=== PATIENT | female | born 1990 | race Caucasian/White ===

== ENCOUNTER 2018-02-16 07:16 | Emergency (ER) | payer OTHER, SELFPAY ==
[2018-02-16] MEDS ORDERED: Ondansetron ODT 8 MG TAB ONE (07:28)
[2018-02-16] MEDS ORDERED: Ketorolac Tromethamine 30 MG/ML VIAL ONE (07:53)
[2018-02-16] MEDS ORDERED: Acetaminophen 500 MG TAB ONE (07:53)
[2018-02-16 08:07] LABS: Hemoglobin 14.8 g/dL (12.0-16.0); Mean Corpuscular HGB CONC 33.1 g/dL (32.0-36.0); Mean Corpuscular Hemoglobin 29.1 pg (27.0-31.0); Mean Corpuscular Volume 87.9 fL (78.0-98.0); Mean Platelet Volume 8.1 fL (7.4-10.4); Platelet Count 212 thou/uL (130-400); RBC Distribution Width 11.4 % (11.5-14.5); Red Blood Cell (RBC) Count 5.07 mill/uL (4.20-5.40); White Blood Cell (WBC) Count 16.6 thou/uL (4.8-10.8)
[2018-02-16 08:13] LABS: BHCG - Serum Negative (NEGATIVE); Pregs Control Background? CLEAR/WHITE (CLR/WHITE); Pregs Control Bar Appear? YES (CONTROL BAR)
[2018-02-16 08:19] LABS: Bilirubin Negative (Negative); Blood, Urine Negative (Negative); Clarity CLEAR (Clear); Glucose, Urine (Dipstick) Negative (Negative); Leukocyte Small (Negative); Nitrite Negative (Negative); Protein, Urine (Dipstick) Negative (Neg-Trace); Specific Gravity, Urine 1.022 (1.002-1.036); Urobilinogen 0.2 mg/dL (0.2-1.0); pH, Urine 7.5 (5.0-9.0)
[2018-02-16 08:22] LABS: Band 2 % (5-11); Lymphocytes 8 % (21-51); MDiff Complete? YES; Monocytes 7 % (0-10); Neutrophil 83 % (42-75); RBC Morphology Normal
[2018-02-16 08:22] LABS: Bacteria/HPF Rare-Few HPF (None Seen); Hyaline Casts/LPF 0-3 HYALINE CAST LPF (0-3 Hyaline); Pathc Cast-AUWi Flag 0.14 (0-2.49); RBC/HPF 0-3 HPF (0-3)
[2018-02-16 08:49] LABS: ALT (SGPT) 10 U/L (8-55); AST (SGOT) 26 U/L (5-34); Albumin 4.5 g/dL (3.5-5.0); Alkaline Phosphatase 103 U/L (40-150); Anion Gap 15 mmol/L (10-20); BUN (Urea Nitrogen) 11 mg/dL (7.0-18.7); Bilirubin, Total 0.6 mg/dL (0.2-1.2); Calc. Creatinine Clearance 0 mL/min (70-130); Calcium 9.6 mg/dL (7.8-10.44); Carbon Dioxide 23 mmol/L (22-29); Chloride 100 mmol/L (98-107); Estimated GFR-MDRD 88; Glucose 112 mg/dL (70-105); Lipase 12 U/L (8-78); Potassium 4.5 mmol/L (3.5-5.1); Protein, Total 8.5 g/dL (6.0-8.3); Sodium 133 mmol/L (136-145)
--- NOTE | 2018-02-16 09:36 | CT ---
CT ABDOMEN AND PELVIS PERFORMED WITHOUT CONTRAST ENHANCEMENT: HISTORY: Abdominal pain and vomiting. COMPARISON: 04/17/2015 FINDINGS: ABDOMEN: The lung bases are clear. The liver, spleen, pancreas, and gallbladder regions appear unremarkable. The gallbladder is mildly distended. The right and left adrenal glands are normal in appearance. A punctate, nonobstructing lower pole le ft renal calculus is seen. No obstruction of either kidney, and no ureteral calculi. No significant periaortic or mesenteric adenopathy. No bowel abnormalities. PELVIS: There is a fat-containing periumbilical hernia. The appendix region is unremarkable. No in flammatory change in this area. No pelvic lymphadenopathy, mass, or free fluid. IMPRESSION: Punctate, nonobstructing lower pole left renal calculus. No acute abnormalities of the abdomen or pe lvis. POS: [facility]
[2018-02-16] MEDS ORDERED: Azithromycin 250 MG TAB ONE (10:31)
[2018-02-16] MEDS ORDERED: cefTRIAXone\\ROCEPHIN 1 GM VIAL ONE (10:31)
[2018-02-16] MEDS ORDERED: Sodium Chloride 0.9% 100 ML ONE (10:31)
[2018-02-16] MEDS ORDERED: metroNIDAZOLE 500 MG TAB PO SCH (10:45)
[2018-02-16] MEDS ORDERED: metroNIDAZOLE 250 MG TAB ONE (11:04)
--- NOTE | 2018-02-16 11:13 | ULT ---
RIGHT UPPER QUADRANT GALLBLADDER ULTRASOUND: HISTORY: Abdominal pain. COMPARISON: CT from the same day. TECHNIQUE: Real-time awan-scale and color evaluation of the right upper quadrant of the abdomen was performed. FINDINGS: The visualized portion of the pancreas is unremarkable. Hepatic echotexture is normal. The gallbladder is normal. The portal vein has patent antegrade flow. The common bile duct is shahnaz l. No cholelithiasis. The right kidney measures 10.7 x 4.8 x 5 cm without mass, hydronephrosis, or abnormal calcifications. A sonographic Marquis sign is negative. IMPRESSION: Normal examination. POS: [facility]
[2018-02-17 23:17] LABS: Chlamydia by PCR Not Detected (NotDetected); GC by PCR Not Detected (NotDetected)
== END 2018-02-16 12:00 | disposition home or self-care (01) ==
LOC: ERS 07:16
DX: R10.30 Lower abdominal pain, unspecified (principal)
CPT/HCPCS: 36415; 74176; 76705; 80053; 81003; 81015; 83605; 83690; 84703; 85025; 87040; 87086; 87480; 87491; 87510; 87591; 87660; 96361; 96365; 96375; J0696; J1885; J7050

== ENCOUNTER 2018-02-19 11:27 | Emergency (ER) | payer SELFPAY ==
[2018-02-19 12:14] LABS: Bilirubin Negative (Negative); Blood, Urine Negative (Negative); Clarity CLOUDY (Clear); Glucose, Urine (Dipstick) Negative (Negative); Leukocyte Negative (Negative); Nitrite Negative (Negative); Protein, Urine (Dipstick) Trace mg/dL (Neg-Trace); Specific Gravity, Urine 1.028 (1.002-1.036); Urobilinogen 0.2 mg/dL (0.2-1.0)
== END 2018-02-19 13:45 | disposition home or self-care (01) ==
LOC: ERS 11:27
DX: R30.0 Dysuria (principal); B96.89 Other specified bacterial agents as the cause of diseases classified elsewhere
CPT/HCPCS: 36416; 51701; 81003; 87086; A4353

== ENCOUNTER 2018-11-25 17:44 | Emergency (ER) | payer SELFPAY ==
[2018-11-25] MEDS ORDERED: Ketorolac Tromethamine 30 MG/ML VIAL ONE (18:42)
[2018-11-25 18:56] LABS: #Basophils 0.1 thou/uL (0.0-0.2); #Eosinphils 0.2 thou/uL (0.0-0.7); #Lymphocytes 2.6 thou/uL (1.20-3.40); #Monocytes 0.6 thou/uL (0.11-0.59); #Neutrophils 6.6 thou/uL (1.40-6.50); %Basophils 0.9 % (0.0-1.0); %Eosinophils 1.7 % (0.0-10.0); %Lymphocytes 25.6 % (21.0-51.0); %Monocytes 5.8 % (0.0-10.0); %Neutrophils 65.9 % (42.0-75.0); Hemoglobin 14.4 g/dL (12.0-16.0); Mean Corpuscular HGB CONC 34.2 g/dL (32.0-36.0); Mean Corpuscular Hemoglobin 29.4 pg (27.0-31.0); Mean Corpuscular Volume 86.1 fL (78.0-98.0); Mean Platelet Volume 8.4 fL (7.4-10.4); Platelet Count 268 thou/uL (130-400); RBC Distribution Width 12.1 % (11.5-14.5); Red Blood Cell (RBC) Count 4.91 mill/uL (4.20-5.40)
[2018-11-25 19:00] LABS: BHCG - Serum Negative (NEGATIVE); Pregs Control Background? CLEAR/WHITE (CLR/WHITE); Pregs Control Bar Appear? YES (CONTROL BAR)
[2018-11-25 19:08] LABS: Anion Gap 15 mmol/L (10-20); BUN (Urea Nitrogen) 12 mg/dL (7.0-18.7); Calc. Creatinine Clearance 0 mL/min (70-130); Calcium 9.6 mg/dL (7.8-10.44); Carbon Dioxide 23 mmol/L (22-29); Chloride 105 mmol/L (98-107); Estimated GFR-MDRD Greater than 90; Glucose 84 mg/dL (70-105); Sodium 139 mmol/L (136-145)
--- NOTE | 2018-11-25 19:28 | CT ---
EXAM: Abdomen and pelvic CT scan without contrast: HISTORY: Abdominal pain and vomiting COMPARISON: 02/16/2018 FINDINGS: The visualized lung bases are clear. Liver: Unremarkable. Gallbladder:Unremarkable. Pancreas:Unremarkable Spleen:Unremarkable. Adrenal glands:Unremarkable. Kidneys:Several tiny nonobstructing left renal calculi.No solid or cystic mass. No evidence for bowel obstruction. No CT evidence for acute appendicitis. The urinary bladder is unremarkable. No abscess, adenopathy, or abnormal fluid collection within the abdomen or pelvis. IMPRESSION: Several nonobstructing left renal calculi. No evidence for acute obstruction. Overall stable app [place].
[2018-11-25 19:51] LABS: Bilirubin Negative (Negative); Blood, Urine Large (Negative); Clarity Hazy (Clear); Glucose, Urine (Dipstick) Negative (Negative); Leukocyte Small (Negative); Nitrite Negative (Negative); Protein, Urine (Dipstick) 100 mg/dL (Neg-Trace); Urobilinogen 0.2 mg/dL (0.2-1.0)
[2018-11-25 19:53] LABS: Bacteria/HPF 2+ HPF (None Seen); RBC/HPF 21-50 HPF (0-3)
== END 2018-11-25 20:09 | disposition home or self-care (01) ==
LOC: SCSER 17:44
DX: N30.00 Acute cystitis without hematuria (principal)
CPT/HCPCS: 36415; 74176; 80048; 81003; 81015; 84703; 85025; 96372; J1885

== ENCOUNTER 2019-06-08 00:06 | Emergency (ER) | payer SELFPAY ==
[2019-06-08] MEDS ORDERED: Ondansetron PF 4 MG/2 ML Vial ONE (00:46)
[2019-06-08] MEDS ORDERED: Morphine 4 MG/ML VIAL ONE (00:46)
[2019-06-08 00:50] LABS: #Eosinphils 0.2 thou/uL (0.0-0.7); #Lymphocytes 2.9 thou/uL (1.20-3.40); #Monocytes 0.6 thou/uL (0.11-0.59); #Neutrophils 8.9 thou/uL (1.40-6.50); %Basophils 0.3 % (0.0-1.0); %Eosinophils 1.5 % (0.0-10.0); %Lymphocytes 22.9 % (21.0-51.0); %Monocytes 4.5 % (0.0-10.0); %Neutrophils 70.7 % (42.0-75.0); Hemoglobin 14.1 g/dL (12.0-16.0); Mean Corpuscular HGB CONC 34.9 g/dL (32.0-36.0); Mean Corpuscular Hemoglobin 30.6 pg (27.0-31.0); Mean Corpuscular Volume 87.7 fL (78.0-98.0); Platelet Count 232 thou/uL (130-400); RBC Distribution Width 11.7 % (11.5-14.5); White Blood Cell (WBC) Count 12.5 thou/uL (4.8-10.8)
[2019-06-08 01:08] LABS: BHCG - Serum Negative (NEGATIVE); Pregs Control Background? CLEAR/WHITE (CLR/WHITE); Pregs Control Bar Appear? YES (CONTROL BAR)
[2019-06-08 01:13] LABS: ALT (SGPT) 7 U/L (8-55); AST (SGOT) 9 U/L (5-34); Albumin 4.2 g/dL (3.5-5.0); Alkaline Phosphatase 76 U/L (40-110); Anion Gap 12 mmol/L (10-20); BUN (Urea Nitrogen) 11 mg/dL (7.0-18.7); Bilirubin, Total 0.2 mg/dL (0.2-1.2); Calc. Creatinine Clearance 0 mL/min (70-130); Calcium 9.3 mg/dL (7.8-10.44); Carbon Dioxide 24 mmol/L (22-29); Chloride 108 mmol/L (98-107); Estimated GFR-MDRD 82; Globulin 3.3 g/dL (2.4-3.5); Glucose 113 mg/dL (70-105); Lipase 25 U/L (8-78); Potassium 3.7 mmol/L (3.5-5.1); Protein, Total 7.5 g/dL (6.0-8.3); Sodium 140 mmol/L (136-145)
[2019-06-08 01:38] LABS: Bacteria/HPF None Seen HPF (None Seen); Bilirubin Negative (Negative); Blood, Urine 2+ (Negative); Clarity Clear (Clear); Glucose, Urine (Dipstick) Normal (Negative); Leukocyte Negative Leu/uL (Negative); Nitrite Negative (Negative); Protein, Urine (Dipstick) Negative (Neg-Trace); RBC/HPF 21-50 HPF (0-3); Urobilinogen Normal mg/dL (Less than 2); WBC/HPF 0-3 HPF (0-3)
--- NOTE | 2019-06-08 08:32 | CT ---
PRELIMINARY REPORT/[facility]/EMERGENCY AFTER HOURS PROCEDURE: CT ABDOMEN PELVIS W CON History: Pt is a 29 YO female presenting with 5 days frequency, dysuria, abdominal pain and vaginal b leeding. Comparison: None Findings: No acute process in the lung bases. Cardiac size within normal limits. There is minimal fluid in the distal esophagus. Correlate for reflux. Abdominal aorta is normal in caliber. Liver, gallbladder, spleen, pancreas and adrenal glands are unremarkable. Kidneys enhance symmetrically. No hydronephrosis. Urinary bladder is unremarkable. Pelvic organs are unremarkable as visualized. No free air or free fluid. Appendix is normal in caliber and is not inflammatory. No small bowel obstruction. Mild underdistention of the colon somewhat limits evaluation. There is mild wall prominence of the ascending colon with mild hazy appearance of the surrounding fat . No evidence of acute diverticulitis. Small fat-containing umbilical hernia. No acute osseous abnormality. Impression: 1. No CT evidence of acute appendicitis, bowel obstruction or acute diverticulitis. There is sugges tion of mild wall prominence of the ascending colon which may be reflective of underdistention. Comp onent of acute colitis is difficult to exclude in the appropriate clinical setting. 2. Minimal fluid within the distal esophagus. Correlate for reflux. 3. Additional findings, as above. Followup per final report recommendations. ELECTRONICALLY SIGNED BY: Greg Mosie DO Jun 08, 2019 1:56:15 AM [employer] This report is intended for review by the ordering physician only, in accordance of law. If you recei ve this report in error, please call [facility] at [phone]. FINAL REPORT CT ABDOMEN AND PELVIS WITH CONTRAST: HISTORY: Diffuse abdominal pain. COMPARISON: None. FINDINGS/IMPRESSION: The findings and impression are concordant with the preliminary report. POS: [facility]
[2019-06-08] MEDS ORDERED: Iopamidol-370 76% 500 ML 1 ML ONE (13:29)
== END 2019-06-08 02:17 | disposition home or self-care (01) ==
LOC: ERS 00:06
DX: N93.8 Other specified abnormal uterine and vaginal bleeding (principal)
CPT/HCPCS: 74177; 80053; 81003; 81015; 83690; 84703; 85025; 87086; 96361; 96374; 96375; J2270; J2405; Q9967

== ENCOUNTER 2023-05-20 12:55 | Emergency (ER) | payer OTHER, SELFPAY ==
[2023-05-20 13:18] LABS: #Basophils 0.1 thou/uL (0.0-0.2); #Eosinphils 0.1 thou/uL (0.0-0.7); #Monocytes 0.6 thou/uL (0.11-0.59); #Neutrophils 9.2 thou/uL (1.40-6.50); %Basophils 0.5 % (0.0-1.0); %Eosinophils 1.1 % (0.0-10.0); %Lymphocytes 15.6 % (21.0-51.0); %Monocytes 5.1 % (0.0-10.0); %Neutrophils 77.4 % (42.0-75.0); Hematocrit 41.2 % (36.0-47.0); Hemoglobin 13.8 g/dL (12.0-16.0); Mean Corpuscular HGB CONC 33.5 g/dL (32.0-36.0); Mean Corpuscular Hemoglobin 29.2 pg (27.0-31.0); Mean Corpuscular Volume 87.3 fl (78.0-98.0); Mean Platelet Volume 10.4 fL (7.4-10.4); Platelet Count 240 10x3/uL (130-400); RBC Distribution Width 12.9 % (11.5-14.5); Red Blood Cell (RBC) Count 4.72 mill/uL (4.20-5.40)
[2023-05-20 13:41] LABS: ALT (SGPT) 8 U/L (8-55); AST (SGOT) 8 U/L (5-34); Albumin 4.3 g/dL (3.5-5.0); Alkaline Phosphatase 85 U/L (40-110); Anion Gap 14 mmol/L (10-20); BUN (Urea Nitrogen) 12 mg/dL (7.0-18.7); Bilirubin, Total 0.3 mg/dL (0.2-1.2); Calc. Creatinine Clearance 0 mL/min (70-130); Calcium 9.1 mg/dL (7.8-10.44); Carbon Dioxide 22 mmol/L (22-29); Chloride 105 mmol/L (98-107); Estimated GFR 112; Globulin 3.3 g/dL (2.4-3.5); Glucose 102 mg/dL (70-105); Potassium 3.4 mmol/L (3.5-5.1); Protein, Total 7.6 g/dL (6.0-8.3); Sodium 138 mmol/L (136-145)
[2023-05-20] MEDS ORDERED: Ondansetron PF 4 MG/2 ML Vial ONE (14:13)
[2023-05-20] MEDS ORDERED: Ketorolac Tromethamine 30 MG/ML VIAL ONE (14:13)
[2023-05-20 14:18] LABS: Troponin I Less than 0.010 ng/mL (< 0.028)
[2023-05-20 14:37] LABS: Bacteria/HPF 2+ HPF (None Seen); Bilirubin Negative (Negative); Blood, Urine Negative (Negative); CAUTI Indications for Culture Pelvic or flank pain; Clarity Clear (Clear); Glucose, Urine (Dipstick) Normal (Negative); Ketone, Urine Negative (Negative); Leukocyte Negative Leu/uL (Negative); Nitrite Negative (Negative); Pregnancy Test - Urine (BHCG) Negative (Negative); Pregu Control Background? CLEAR/WHITE (CLR/WHITE); Pregu Control Bar Appear? YES (CONTROL BAR); Protein, Urine (Dipstick) Negative (Neg-Trace); RBC/HPF 0-3 HPF (0-3); Specific Gravity 1.012 (1.002-1.036); Specific Gravity, Urine 1.012 (1.002-1.036); Squamous Epithelial 0-3 HPF (0-3); Urobilinogen Normal mg/dL (Less than 2); WBC/HPF 0-3 HPF (0-3)
[2023-05-20 14:38] LABS: Urine Culture Reflex No No
== END 2023-05-20 16:14 | disposition home or self-care (01) ==
LOC: ERS 12:55
DX: R07.9 Chest pain, unspecified (principal)
CPT/HCPCS: 71045; 80053; 81001; 81025; 84484; 85025; 93005; 96374; J1885; J2405